=== PATIENT | male | born 1955 | race Caucasian/White ===

== ENCOUNTER → 2018-10-19 | Outpatient (CLI) | payer OTHER ==
[~2018-10-19] MED LIST: AMLO5 PO; ASPI325 PO; ASPI81CH PO; CITA20; CLON.2; CLON.2 PO; DIGO.25 PO; FURO40 PO; GLIP5; GLIP5 PO; Glucophage1000 MG PO; HYDACE5325 PO; ISOMON30 PO; LISI5 PO; LOSA50 PO; LOVA20 PO; METO100ER PO; METO25ER PO; Metoprolol Tar100 MG PO; NAPR220 PO; POTA10T PO; SENN187 PO; WARF5
[2018-10-22 13:07] LABS: M-SPIKE, % Not Observed % (Not Observed); PROTEIN,TOTAL,URINE 16.1 mg/dL (Not Estab.)
== END | disposition home or self-care (01) ==
LOC: LAB SHORT 04:00 → OLS 04:00 → LAB FUT 10-17 09:35
PROVIDERS: Internal Medicine
DX: Z00.01 Encounter for general adult medical examination with abnormal findings (principal)
CPT/HCPCS: 81050; 84166; 86335

== ENCOUNTER 2019-04-09 10:30 | Day surgery (SDC) | payer OTHER ==
[~2019-04-09] VITALS: Ht 190.5 cm; Wt 97.9 kg
[~2019-04-09 10:30] MED LIST changes: +Aspirin EC81 MG PO; +CLON.3 PO; +ELIQUIS5 MG PO; +SILDENAFIL20 MG PO
--- NOTE | 2019-04-09 11:39 | NUR ---
04/09/19 1139 Mahnaz Hernández PT. NOTIFIED THAT HIS CASE MAY BE RUNNING A LITTLE LATE PER DR. WONG THE ANESTHESIOLOGIST. PT. VERBALIZES BEING WARM ENOUGH. PT. DIDN'T WANT A MAGAZINE OR HIS PHONE. PT. VERBALIZES HE JUST WANTS TO TAKE A NAP.
== END 2019-04-09 13:40 | disposition home or self-care (01) ==
LOC: ORSCSDS 10:30
PROVIDERS: Internal Medicine Gastroenterology
PROC: 0DBN8ZX Excision of Sigmoid Colon, Via Natural or Artificial Opening Endoscopic, Diagnostic (ICD-10-PCS; principal; 2019-04-09 12:00)
PROC: 0DBM8ZX Excision of Descending Colon, Via Natural or Artificial Opening Endoscopic, Diagnostic (ICD-10-PCS; principal; 2019-04-09 12:00)
PROC: 0DBK8ZX Excision of Ascending Colon, Via Natural or Artificial Opening Endoscopic, Diagnostic (ICD-10-PCS; principal; 2019-04-09 12:00)
DX: Z12.11 Encounter for screening for malignant neoplasm of colon (principal); Z86.010 Personal history of colon polyps; D12.4 Benign neoplasm of descending colon; D12.5 Benign neoplasm of sigmoid colon; D12.2 Benign neoplasm of ascending colon; I10 Essential (primary) hypertension; G47.33 Obstructive sleep apnea (adult) (pediatric); E11.9 Type 2 diabetes mellitus without complications; E66.9 Obesity, unspecified; Z68.35 Body mass index [BMI] 35.0-35.9, adult; I48.91 Unspecified atrial fibrillation; K64.8 Other hemorrhoids; Z87.891 Personal history of nicotine dependence; Z79.82 Long term (current) use of aspirin; Z79.84 Long term (current) use of oral hypoglycemic drugs; Z79.899 Other long term (current) drug therapy
CPT/HCPCS: 82947; 88305; J2704; J7120